=== PATIENT | male | born 1945 | race Caucasian/White ===

== ENCOUNTER → 2021-03-23 | Outpatient (CLI) | payer MEDICARE, OTHER ==
--- NOTE | 2021-03-23 14:49 | REP ---
INDICATION: Headaches COMPARISON: None TECHNIQUE: Carotid ultrasonography was performed bilaterally FINDINGS: Right: CCA systolic: 124.5 centimeters/second CCA diastolic: 41.2 centimeters/second ICA systolic: 60.1 centimeters/second ICA diastolic: 19.2 centimeters/second ICA CCA ratio: 0.48 Left: CCA systolic: 131.0 centimeters/second CCA diastolic: 22.2 centimeters/second ICA systolic: 58.7 centimeters/second ICA diastolic: 16.4 centimeters/second ICA CCA ratio: 0.45 Vertebral artery: Right: Antegrade flow left: Antegrade flow Patchy echogenic material is seen along the carotid arterial [place] small amount of which casts and acoustic shadow IMPRESSION: According to the SRU criteria there is less than 50% stenosis of the internal carotid artery bilaterally. This is secondary to predominantly soft atheromatous plaque formation. <Electronically signed by Manoj Betancourt > 03/23/21 [id number]
== END ==
LOC: M RAD 13:24
PROVIDERS: ATTEND Physician Assistant
DX: I65.23 Occlusion and stenosis of bilateral carotid arteries (principal)